=== PATIENT | male | born 1960 | race Caucasian/White ===

== ENCOUNTER → 2019-11-25 | Day surgery (SDC) | payer OTHER ==
[2019-11-25] VITALS (12 sets, daily range): BP systolic 98–155; BP diastolic 52–85
[~2019-11-25] MED LIST: ASPIRIN 325 MG TAB ONE; BIVALRIUDIN 250 MG/VIAL VIAL IV ONE; FENTANYL CITRATE/PF 100MCG/2 ML INJ ONE; HEPARIN SOD (PORCINE) 1000 UNIT/ML 30ML ONE; HEPARIN SOD/SOD CHLORIDE 2,000 ML ONE; IOPAMIDOL 370 MG/ML 200 ML INFUS..BTL INJ ONE; MIDAZOLAM HCL 2 MG/2 ML VIAL ONE; NITROGLYCERIN/D5W 200 MCG/ML 250 ML ONE; NOREPINEPHRINE 8 MG/D5W 250 ML 250 ML ONE; PRASUGREL 10 MG TAB ONE; SODIUM CHLORIDE 0.9% 1000ML 1,000 ML ONE; SODIUM CHLORIDE 0.9% 50ML 50 ML ONE; VERAPAMIL HCL 2.5 MG/ML 2 ML VIAL ONE
--- NOTE | 2019-11-25 12:17 | Operative Report ---
DATE OF PROCEDURE: 11/25/2019 SURGEON: Eric Christopher MD INDICATIONS: Coronary artery disease, angina, abnormal stress test. PROCEDURES PERFORMED: 1. Ultrasound-guided access in the right radial artery with image storage and sheath placement. 2. Conscious sedation, 65 minutes by orthodontic lab technician RN, supervision by . 3. Left heart catheterization, selective coronary angiography. 4. Stent placement to the mid circumflex coronary artery. 5. Deployment of right wrist TR band. COMPLICATIONS: None. BLOOD LOSS: Minimal. RECOMMENDATIONS: Aspirin, clopidogrel, and Xarelto for 3 months followed by aspirin and Xarelto lifelong for atrial fibrillation. DESCRIPTION OF PROCEDURE: Access obtained in the right radial artery. Using ultrasound guidance, a 5-Brazilian sheath was placed. Coronary angiography demonstrated patent left main, left anterior descending artery proximal 50%, mid diffuse 30% to 50%, distal 70% stenosis, 2 mm vessel. Circumflex, mid 80% stenosis. Right coronary artery was dominant with moderate 30% to 50% stenosis. A decision was made to intervene on the circumflex coronary artery. The patient received intravenous Angiomax and oral aspirin and prasugrel for anticoagulation. The left main was cannulated using an ERAD 5-Brazilian guiding catheter. A short Runthrough wire was advanced for support. Primary stent 3.0 x 16 mm Synergy deployed at 18 atmospheres, excellent end result, less than 10% residual stenosis, TAB-3 flow. No complications. Wire and guide sheath were removed. TR band applied. The patient observed in the hospital for 6 hours and subsequently discharged home the same day. Eric Christopher MD [facility]/MOD[facility] /[id number]
== END | disposition home or self-care (01) ==
LOC: CATH LAB 06:13
PROVIDERS: ATTEND Internal Medicine Interventional Cardiology
DX: I25.118 Atherosclerotic heart disease of native coronary artery with other forms of angina pectoris (principal); R94.39 Abnormal result of other cardiovascular function study; I10 Essential (primary) hypertension; I48.0 Paroxysmal atrial fibrillation; Z82.49 Family history of ischemic heart disease and other diseases of the circulatory system
CPT/HCPCS: 76937; 92928; 93454; C1769; C1874; C1887; J0583; J1644; J2250; J3010; J7030; Q9967; 99152; 99153